=== PATIENT | male | born 1955 | race Asian ===

== ENCOUNTER 2024-08-10 13:03 | Outpatient (CLI) | payer OTHER, SELFPAY ==
--- NOTE | ~2024-08-10 | US_ITS ---
EXAMINATION: US soft tissue UE LT DATE: 08/10/2024 13:15 INDICATION: Left upper limb lipoma. TECHNIQUE: Multiple grayscale and Doppler ultrasound images of the left upper limb were obtained. COMPARISON: None FINDINGS: In the left upper limb overlying the shoulder, there is a 5.4 x 1.3 x 4.7 cm subcutaneous m ass with similar echogenicity and echotexture to normal subcutaneous fat, consistent with a lipoma. IMPRESSION: 1. 5.4 cm subcutaneous lipoma overlying left shoulder. Reviewed, dictated and finalized at location A. [facility] ANALYTICAL DEVELOPMENT
== END 2024-08-10 13:04 | disposition home or self-care (01) ==
LOC: GOSHIMG 13:04
PROVIDERS: PCP Emergency Medicine; Visit Provider Emergency Medicine
DX: D17.22 Benign lipomatous neoplasm of skin and subcutaneous tissue of left arm (principal)
CPT/HCPCS: 76882

== ENCOUNTER 2025-09-13 00:41 | Day surgery (SDC) | payer OTHER, SELFPAY ==
[2025-09-05 13:31] VITALS: BMI 24.0
--- NOTE | 2025-09-05 13:42 | PC.NURSE ---
[facility] has started construction of its new state of the art ER which will open Spring 2026. With this, we anticipate parking may be a challenge for some our surgical patients and families. Parking spaces are limited but are available for all Surgical, obstetrics, and ER patients sharing this lot. If you arrive and find you are having a hard time finding a parking space, please note that we understand the challenges, please drive around the hospital and park near Hospital Entrance 1. When you enter this entrance, you can ask a volunteer to direct or take you back to the surgical waiting area to check in. We appreciate everyone?s understanding of these expected challenges while we build for your future. Report to the Outpatient Waiting Room, entrance under the green pavilion located off [address], at time __11:15am on date _09/13/25 . Planned Procedure Time: _1:15pm .? Time changes happen often and if your time is changed the preop area will call you the afternoon before. - You and your visitor will be asked to self-screen and do not enter if you have any COVID symptoms. Please call surgeon if you need to reschedule. - A mask is optional within the hospital at this time. Patients may have clear liquids (water, carbonated beverages, clear teas, apple juice) until 3 hours prior to surgery with a maximum of 20 ounces. - No food from midnight until time of surgery and no smoking, or chewing tobacco (or any form of nicotine). No chewing gum, candy or mints.(10:15am) Take only the following medications with a SIP of water on the morning of surgery: __NONE DO NOT STOP ANY OF YOUR OTHER PRESCRIPTION MEDICATIONS PRIOR TO SURGERY EXCEPT THE FOLLOWING Hold all vitamins and supplements for 3 days per anesthesiologist. Last Dose is 09/09/25 Medications to discontinue per physician NONE Date to take last dose___NONE Please no make-up, nail azeri, hairspray, perfume, deodorant, or body powder the day of surgery.? No jewelry (including any body piercings) or valuables the day of surgery, leave them at home.? Please take a shower or bath the night before, or the morning of, surgery with an antibacterial soap.? Wear comfortable, loose fitting clothing.? - Jewelry must be removed prior to entering the operating room.? Rings and piercings that are not removed may be cut off. - The hospital will not accept responsibility for valuables.? - Please leave all valuables, including medications, at home the day of surgery. If you are going home after surgery, a licensed concrete mixer truck driver must drive you home.? - NO public transportation without another adult if you receive anesthesia. - We recommend that an adult stay with you for 24 hours following discharge. - We also recommend that you do not drive, make important decision, drink alcoholic beverages, or take any drugs that were not prescribed by your health care provider for at least 24 hours after your discharge time. Follow any additional instructions given to you from your surgeon. Telephone instructions given to ___PATIENT and asked if any additional questions and then verbalized understanding. Patient advised to call surgeon office or pre surgery nurse liaison [phone] if any additional questions.
[2025-09-13] VITALS (10 sets, daily range): BP systolic 125–159; BP diastolic 67–84; PULSE 60–90; RESP 12–60; TEMP 36.5–36.9; O2SAT 97–100
[2025-09-13] MEDS: LACTATED RINGERS 1,000 ML 30 ML IV CONT ×3 (11:15→15:50)
[2025-09-13] MEDS: KETOROLAC 15 MG/ML VIAL (*BKC) IV PUSH ×2 (11:15→14:22)
[2025-09-13] MEDS: ACETAMINOPHEN 500 MG TABLET 1000 MG PO (11:15)
--- NOTE | 2025-09-13 11:46 | WPDHPUPDATE1 ---
History and Physical Update Update Date/Time: 09/13/25 11:46 History and Physical has been reviewed, including an updated exam of the patient. There are NO changes in the patient's condition. Risks, benefits, and alternatives have been discussed and questions answered. Patient agrees to proceed with procedure.
--- NOTE | 2025-09-13 12:00 | P.PNAN_ITS ---
Anes - Initial Pre Proc Eval Procedure: Operation Date: 09/13/25 12:00 Proposed Procedures p Robotic Assisted Laparoscopic Right Inguinal Hernia Repair, Possible Left Inguinal Repair with Mesh, Possible Open - Judd Mc MD Date/Time: 09/13/25 12:00 Surgeon: Judd Mc MD Pre Op Diagnosis: Reducible Right Ing Hernia Patient Data Age: 70 Gender: M Height: 1.8 m Weight: 78 kg Allergies Allergy/AdvReac Type Severity Reaction Status Date / Time No Known Allergies Allergy Verified 09/05/25 13:25 Home Medications ?Medication ?Instructions ?Recorded ?Confirmed ?Type betamethasone dipropionate 0.05 % 1 applic topical DOREEN LY PRN 07/27/24 09/05/25 History topical cream allergic reaction docusate sodium 100 mg capsule 100 mg PO DAILY PRN con stipation 09/05/25 09/05/25 History (Colace) magnesium 250 mg tablet 250 mg PO DAILY 09/05/25 History multivitamin (Daily Multi-Vitamin 1 tablet PO DAILY 09/05/25 History tablet) psyllium husk 0.4 gram capsule 0.4 g PO DAILY 09/05/25 09/05/25 History (Daily Fiber) Laboratory Tests 09/13/25 10:39 Blood Type B Positive Antibody Screen Negative Patient hx anesthesia problems: none Family hx anesthesia problems: none Results Review: All pre-operative results and documents have been reviewed as part of the pre- operative evaluation. [facility] Past Medical History Medical History Psoriasis Heart disease Family History Family History Father Hypertension Mother Hypertension Sibling Depression Hypertension Social History Social History (Updated 08/30/25 @ 10:28 by Светлана Potts MA) Smoking status: Never smoker Second hand tobacco smoke exposure: No Alcohol intake: never Substance use: never Substance use type: does not use Lack of Transportation: No Lack of Food: Never True Current Housing: I Have Housing Concerned About Future Housing: No Difficulty Paying Gas/Electric Bills: No Difficulty Paying for Meds: No Currently Unemployed: No Education: Master's Degree or Higher Difficulty w/ Childcare or Family Care: No Living arrangements: with family Additional living arrangements comments: Occupation/Education: retired 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 Informed Consent: The patient's anesthetic plan and its attendant risks and benefits were discussed with the patient/family/POA. Questions were solicited and answers provided to the satisfaction of the patient/family/POA.
[2025-09-13] MEDS: LIDO 1%/EPINEPHRINE 1:100,000 50 ML VIAL 30 ML INFILTRATE (12:11)
[2025-09-13] MEDS: BUPivacaine HCL 0.5% 10 ML AMP 30 ML INFILTRATE (12:11)
[2025-09-13] MEDS: ceFAZolin 2 GM in SODIUM CHLORIDE 0.9% IV 50 ML 100 ML IVPB (12:11)
--- NOTE | 2025-09-14 10:18 | W.PM.PROC2 ---
Procedure Note - Detailed Date of Procedure 09/13/23 Pre-op Diagnosis Reducible Right inguinal hernia Post-op Diagnosis Same (Reducible indirect right inguinal hernia.) Procedure Performed Robotic assisted laparoscopic right inguinal hernia repair with Bard 3D mid weight mesh. Surgeon Judd Mc MD Curve Saw Operator ALEIDA Stanley, Yony Richardson SA Anesthesia General Indications Patient is a 70-year-old male who presented with complaints of some mild pain in the right groin region as well as a bulge on examination is found to have reducible right inguinal hernia. He presents today for an elective robotic assisted laparoscopic right inguinal hernia repair with mesh. Findings The patient had a moderately large reducible indirect right inguinal hernia. No evidence of left inguinal hernia was seen at the time of surgery. Description of Procedure After informed consent was obtained patient brought to the operating room was placed supine position and general endotracheal anesthesia was administered. The abdomen and bilateral groin regions were then prepped and draped usual sterile fashion. A time-out was then performed correctly identifying the patient as well as procedure to be performed. Site marking was verified. He was given perioperative IV antibiotics. I then started by placing a 5mm Optiview port in the left upper quadrant utilizing direct visualization into the abdomen. Once inside the abdomen insufflated to adequate pneumoperitoneum of 15mmHg of CO2. I then placed 3 more additional 8mm robotic trocar ports across the mid abdomen. The 5mm left upper quadrant trocar port was then switched out to a 10mm bedside psychology assistant laparoscopic trocar port. The patient was then placed 15? in the head-down Trendelenburg position. I was then able to look down in the groins and identified and moderate size indirect inguinal hernia. No evidence of direct defect was seen. There was no evidence of a left inguinal hernia on inspection of the left groin region. There were some peritoneal adhesions of the cecum to the peritoneum in the right groin region. I then had the robot brought to the patient's bedside and docked. The robotic arms were then attached robotic ports. Robotic instruments were then advanced into the abdomen without difficulty under direct visualization. I then scrubbed out the procedure sent down at the console to perform the dissection. I 1st started by taking down some of the peritoneal adhesions of the cecum to the right lower quadrant peritoneum in the groin to be able to start my preperitoneal flap. Once this was done I then started a preperitoneal flap just anterior medial to the right anterior superior iliac spine in across the lower abdomen across the right side of the median umbilical ligament. Dissection was then carried down in this preperitoneal plane with robotic hook cautery dividing the with the tissue. Medially I dissected all the way down to the pubic tubercle on the right. I then dissected medially across the midline past the pubic symphysis. I then dissected for couple cm down into the space of Retzius. I then continued my dissection laterally dissecting the indirect inguinal hernia sac out of the internal ring where careful dissection with robotic hook electrocautery. Identified the vas deferens and testicular vessels and preserve these without injury. Once I had the hernia sac dissected up out of the inguinal canal I then also then dissected the peritoneal flap proximal up onto the psoas muscle. Once I felt that I had enough of the peritoneum dissected proximally so that the mesh would not roll up closure of the peritoneum I then proceeded to measure the space and I felt that a extra-large piece of Bard 3D mid weight mesh oriented for the right groin region would be appropriate for the repair. The Bard 3D mid weight mesh measured [id number]. It was placed into the abdomen through the bedside psychology assistant trocar port site and then placed into the dissected space to cover the existing indirect right inguinal hernia as well as the potential direct space and the femoral space. The home myopectineal orifice was protected and covered with mesh. I then secured the mesh in place by placing a few 2-0 Vicryl sutures around the tissues of the pubic tubercle. Laterally the mesh was secured to the muscle fibers anterior medial to the left anterior superior iliac spine. Another suture was then placed to approximate the mesh to the potential direct space. The peritoneum was then pulled up and the proximal edge of the mesh did not roll up with the peritoneum. I then proceeded to close the peritoneal flap utilizing a running 2-0 absorbable V lock suture. There was a small hole in the peritoneal flap was then closed utilizing a 2-0 Vicryl suture in a figure-eight fashion. I inspected all the bowel appeared to be normal without any bleeding or injury. I then had the robotic instruments removed from the abdomen and the robot undocked from the patient's bedside. I then scrubbed back in the procedure then proceeded to close the 8mm periumbilical trocar port fascial defect as well as a 12mm left upper quadrant trocar port fascial defect utilizing a suture Passer to place 0 Vicryl suture transfascially and closed those defects. I then irrigated out all the port sites sterile saline solution after removing the ports. The abdomen was allowed to decompress. The skin edges in all the port sites were then approximated utilizing a running subcuticular 4-0 Monocryl suture. The incisions were then cleaned the skin glue was applied. The patient tolerated the procedure well no complications. All sponges, needles, and instrument counts were correct at the end procedure. EBL was __25_cc. The patient was awakened and taken to recovery in stable and satisfactory condition. Implants Extra-large piece of Bard 3D mid weight mesh [id number] placed in the right groin. Estimated Blood Loss 25 Drains No Packing No Pathology None sent Complications No immediate complications Condition Stable Disposition PACU [facility] Billing Surgery - Charge Forward: Surgery Billing
== END 2025-09-13 17:35 | disposition home or self-care (01) ==
PROVIDERS: PCP Emergency Medicine; Visit Provider Surgery
PROC: 8E0Y4CZ Robotic Assisted Procedure of Lower Extremity, Percutaneous Endoscopic Approach (ICD-10-PCS; CPT 49650; principal; 2025-09-13 12:00)
DX: K40.90 Unilateral inguinal hernia, without obstruction or gangrene, not specified as recurrent (principal)
CPT/HCPCS: 49650; S2900; 36415; 86850; 86900; 86901; J0690; A9270; C1781; J1100; J1885; J2003; J2004; J2250; J2405; J2704; J3010; J7120